=== PATIENT | male | born 1945 | race Asian ===

== ENCOUNTER → 2017-04-16 | Day surgery (SDC) | payer MEDICARE, OTHER ==
[~2017-04-16] MED LIST: NO MEDICATIONS
--- NOTE | ~2017-04-16 | OR ---
Unit #: [id number] #: [id number] Patient: SETH CONNORS [id number] [address] [place], [place] [address] [id number] MR#: [id number] NAME: SETH CONNORS ROOM: Date of Procedure: 04/16/2017 Admission Date: 04/16/2017 Surgeon: Ramakrishna Morris M.D. : 1945 Attending Physician: Ramakrishna Morris M.D. OPERATIVE REPORT PRIMARY CARE PHYSICIAN Leobardo Albert M.D. PREOPERATIVE DIAGNOSIS Colorectal cancer screening in an average-risk patient. PROCEDURES PERFORMED Colonoscopy and polypectomy. POSTOPERATIVE DIAGNOSES 1. The patient had 3 sessile polyps in the rectum and one in the sigmoid colon. These ranged in size from 7 mm to 2 cm. All the polyps were removed using snare cautery polypectomy. They were retrieved and sent for histology. 2. Rest of the examination up to cecum was normal. The quality of the prep was excellent. RECOMMENDATIONS Follow up results of polyp histology and consider repeat colonoscopy in 5 years. SEDATION USED MAC. DESCRIPTION OF PROCEDURE Following detailed explanation of the potential risks and complications of a colonoscopy, namely perforation, bleeding, and complications related to sedation, the patient was brought to GI lab and laid in the left lateral decubitus position. A digital rectal examination was performed, which was normal. Lubricated tip of the Olympus video colonoscope was inserted through the anus and advanced under direct vision. The scope was advanced and passed up to sigmoid into descending colon. No diverticula were noted in this area. The scope tip was then navigated all the way up to cecum with visualization of the ileocecal valve and the appendiceal orifice. Preparation was excellent with good visualization and photodocumentation was obtained. Last several inches of the terminal ileum also visualized after intubation of the ileocecal valve and appeared normal. Successive segments of the colonic mucosa were examined upon withdrawal and the patient was noted to have multiple polyps. There was one polyp in the proximal sigmoid colon about 1.8 cm in size. There were 3 additional polyps in the rectum. These were 6 mm, 8 mm, and 1.2 cm. All the polyps were removed using snare polypectomy. They were retrieved and sent for Unit #: [id number] #: [id number] Patient: SETH CONNORS histology. Excellent hemostasis was achieved and photodocumentation was obtained. No additional polyps were noted. The patient did not have any diverticulosis nor any hemorrhoids. The scope was then withdrawn. The patient returned to the recovery area. He tolerated the procedure without any postprocedure complications. Dictated by... Deonte Mcelroy/abbe TD: 04/16/2017 19:22 JOB #: [id number] CC: Leobardo Albert M.D. OPERATIVE REPORT Page 1 of 1 X Ramakrishna Morris MD X PROCEDURE OPERATIVE NOTE
== END | disposition home or self-care (01) ==
LOC: COPS 09:40
DX: Z12.11 Encounter for screening for malignant neoplasm of colon (principal); D12.5 Benign neoplasm of sigmoid colon; D12.8 Benign neoplasm of rectum; F17.210 Nicotine dependence, cigarettes, uncomplicated; Z98.890 Other specified postprocedural states
CPT/HCPCS: 88305